=== PATIENT | male | born 1980 | race Caucasian/White ===

== ENCOUNTER 2018-11-03 12:40 | Emergency (ER) | payer OTHER, SELFPAY ==
[2018-11-03] VITALS (14 sets, daily range): BP systolic 109–133; BP diastolic 56–72; PULSE 60–74; RESP 16; TEMP 37.4; O2SAT 96–99
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
--- NOTE | 2018-11-03 15:54 | NUR.NOTE ---
Nursing Note: [address] Per MD ok to place patient in the results waiting room prior to DC.
== END 2018-11-03 15:56 | disposition home or self-care (01) ==
PROVIDERS: Emergency Provider Student in an Organized Health Care Education/Training Program
DX: R51 Headache (principal); J34.89 Other specified disorders of nose and nasal sinuses; V17.0XXA Pedal cycle driver injured in collision with fixed or stationary object in nontraffic accident, initial encounter
CPT/HCPCS: 99284; 70450; 72125; L0172